=== PATIENT | female | born 1980 | race Two or more races ===

== ENCOUNTER 2025-01-30 16:43 | Emergency (ER) | payer MEDICAID, SELFPAY ==
[2025-01-30 16:53] VITALS: BP 111/74; PULSE 101; RESP 18; TEMP 37.2; O2SAT 98
--- NOTE | 2025-01-30 17:07 | PD.EDEAR ---
ED Ear RME/HPI General Chief complaint: Ear Stated complaint: BUG IN L) EAR Time Seen by Provider: 01/30/25 16:53 Source: patient Arrival date/time: 01/30/25 16:43 44-year-old female with no known medical history presents to the emergency room with a chief complaint of feeling like there is a bug in her left ear x 2 hours Mode of arrival: ambulatory Limitations: no limitations Related Data Previous Rx's ?Medication ?Instructions ?Recorded ofloxacin 0.3 % ear drops 5 drp otic (ear) QDAY 7 days #5 mL 01/30/25 Allergies Allergy/AdvReac Type Severity Reaction Status Date / Time No Known Allergies Allergy Verified 01/30/25 16:45 Review of Systems Review of Systems Systems Reviewed: All systems reviewed, normal except as documented Constitutional Constitutional: Reports system reviewed and no additional complaints, except as documented, Denies fatigue, Denies fever(s), Denies headache(s) and Denies weakness Eyes Eyes: Reports system reviewed and no additional complaints, except as documented, Denies blurry vision and Denies change in vision ENT Ears, Nose, Mouth, and Throat: Reports system reviewed and no additional complaints, except as documented, Denies otalgia, Denies headache(s), Denies nasal congestion, Denies throat swelling and Denies vertigo Cardiovascular Cardiovascular: Reports system reviewed and no additional complaints, except as documented, Denies chest pain, Denies dyspnea and Denies dyspnea on exertion Respiratory Respiratory: Reports system reviewed and no additional complaints, except as documented, Denies chest congestion, Denies cough, Denies dyspnea, Denies dyspnea on exertion and Denies wheezing Gastrointestinal Gastrointestinal: Reports system reviewed and no additional complaints, except as documented, Denies abdominal pain, Denies cramping, Denies nausea and Denies vomiting Genitourinary Genitourinary: Reports system reviewed and no additional complaints, except as documented Musculoskeletal Musculoskeletal: Reports system reviewed and no additional complaints, except as documented and Denies back pain Integumentary/Breasts Skin/Breast: Reports system reviewed and no additional complaints, except as documented and Denies wounds Neurologic Neurologic: Reports system reviewed and no additional complaints, except as documented, Denies confusion, Denies headache(s), Denies lack of coordination, Denies vertigo and Denies weakness Psychiatric Psychiatric: Reports system reviewed and no additional complaints, except as documented, Denies anxiety, Denies confusion, Denies depression, Denies paranoia, Denies suicidal ideation and Denies tactile hallucinations Endocrine Endocrine: Reports system reviewed and no additional complaints, except as documented and Denies fatigue Hematologic/Lymphatic Hematologic/Lymphatic: Reports system reviewed and no additional complaints, except as documented and Denies lymphadenopathy Allergic/Immunologic Allergic/Immunologic: Reports system reviewed and no additional complaints, except as documented, Denies throat swelling, Denies urticaria and Denies wheezing ED Exam General Limitations: Present no limitations General appearance: Present alert and in no apparent distress Head Head exam: Present atraumatic Eye Eye exam: Present normal appearance, PERRL and EOMI ENT ENT exam: Present normal exam, normal oropharynx and mucous membranes moist Neck Neck exam: Present normal inspection, full ROM and trachea midline Chest Chest inspection: Present normal inspection and symmetric chest wall rise Respiratory Respiratory exam: Present normal lung sounds bilaterally Cardiovascular Cardiovascular exam: Present regular rate, normal rhythm and normal heart sounds Abdominal Exam Abdominal exam: Present soft and normal bowel sounds Extremities Exam Extremities exam: Present normal inspection and full ROM Back Exam Back exam: Present normal inspection and full ROM Neurological Exam Neurological exam: Present alert, oriented X3 and CN II-XII intact Psychiatric Psychiatric exam: Present normal affect and normal mood Skin Skin exam: Present warm, dry, intact and normal color Course Quality Measures none Orders Category Date Time Status ED Ear Irrigation X1 Care 01/30/25 17:06 Active Vital Signs Vital signs: Vital Signs Temperature 99.0 F 01/30/25 16:53 Pulse Rate 101 H 01/30/25 16:53 Respiratory Rate 18 01/30/25 16:53 Blood Pressure 111/74 01/30/25 16:53 Pulse Oximetry (%) 98 01/30/25 16:53 Oxygen Delivery Method Room Air 01/30/25 16:53 O2 saturation 98% within normal limits Ear MDM Narrative MDM Narrative:: 44-year-old female with no known medical history presents to the emergency room with a chief complaint of feeling like there is a bug in her left ear x 2 hours Patient is hemodynamically stable and in no apparent distress. ENT examination was completed and I was unable to visualize any foreign body or insect in her left ear. An ear irrigation was completed and the patient states she had relief. I reevaluated the ear and there is still no insects or foreign body that I was able to visualize. Tympanic membrane is clear and nonbulging nonerythemic. The patient does have some external ear canal tenderness. Patient was sent home with otitis externa antibiotics Patient was discharged and educated to follow-up with primary care provider in the next 24 to 48 hours and return to the emergency room for any evidence of worsening signs or symptoms Patient data External records reviewed:: [facility] previous records Clinical information provided by:: patient Social determinants that could affect healthcare access:: none Patient has the following chronic illnesses:: No chronic illness How is presenting disease/condition affected by chronic disease/condition?: no chronic disease Evaluation data The following diagnostics were reviewed and interpreted by me:: lab results and radiology exam(s) Lab and/or radiology exams considered but not ordered:: Labs and radiology exams considered in order Interpretation Summary: N/A Medications / Prescriptions Medications or Prescriptions considered but not ordered:: No medication given Medication administrations:: No medication given Consultations Consultation(s) initiated? (list below): No Diagnosis Ear Differential Diagnosis: otitis externa, otitis media and foreign body in ear Most likely diagnosis given after review of the tests above:: Otitis externa Admission Indicated Admission indicated?: not indicated Admission Request Was there a request for admission?: No Disposition Plan Disposition Plan: Discharge Discharge Attestation Discharge Attestation: The patient and all family members were given an opportunity to ask questions and understood the discharge instructions. Discharge instructions specifically effects, indications for sooner follow up or return to the emergency department, and the expected course of current diagnosis. Patient condition: Stable Discharge Plan Plan Patient Disposition: HOME (Self Care) Discharge Disposition comment: Stable Prescriptions/Referrals Prescriptions/Med Rec: New ofloxacin 0.3 % drops 5 drp otic (ear) QDAY 7 Days Qty: 5 0RF Referrals: No Primary/Family,Physician [Primary Care Provider] - In 1 week Problem List Clinical Impression: Otitis externa Patient/Caregiver Discharge Instructions Education Materials: Anatomy of the Ear, ED External Ear Infection (Adult) Additional Instructions: Please follow-up with your primary care provider in the next 24 to 48 hours. Medication was sent to pharmacy please pick it up and take it as indicated For any evidence of worsening signs or symptoms return to the emergency room immediately Print Language: Tamazight Stand Alone Forms: [employer] Award Info., Patient Portal Info Letter PA/[employer]ICIAN Supervising Physician LORRAINE/WILBUR Supervising Physician: Dr. Maddox
== END 2025-01-30 17:41 | disposition home or self-care (01) ==
PROVIDERS: Emergency Provider Family Medicine
DX: H60.92 Unspecified otitis externa, left ear (principal)
CPT/HCPCS: 99283

== ENCOUNTER 2025-03-28 16:04 | Emergency (ER) | payer MEDICAID, SELFPAY ==
[2025-03-28 16:04] VITALS: BMI 23.5
[2025-03-28 17:02] VITALS: BP 116/65; PULSE 93; RESP 18; TEMP 36.8; O2SAT 97
--- NOTE | 2025-03-28 17:07 | EDNOTE_ITS ---
ED SOB =RME/HPI General Chief Complaint: Shortness of Breath/Dyspnea Stated Complaint: DIFF BREATHING TODAY, RIGHT SIDE PAIN Time Seen by Provider: 03/28/25 17:06 Arrival date/time: 03/28/25 16:04 Limitations: no limitations RME / HPI RME / HPI Narrative: 44 year old female presents to the ED for evaluation of shortness of breath beginning today. Described feeling she is not able to get a good breath in. Accompanied by a nonproductive cough. Additionally reports feeling something kicking me in her abdomen. States she had her menses last month and does not believe she is . No other associated symptoms reported. Denies fevers, chills, chest pain, abdominal pain, n/v/d, or urinary symptoms. Denies using her inhaler at home. Related Data Previous Rx's ?Medication ?Instructions ?Recorded albuterol sulfate 90 mcg/actuation 2 inh inhalation Q6 H PRN shortness 03/28/25 aerosol inhaler of breath or wheezing #8.5 g nadia prednisone 20 mg tablet See Taper PO QDAY allergic 0 03/28/25 reaction #18 tabs Allergies Allergy/AdvReac Type Severity Reaction Status Date / Time No Known Allergies Allergy Verified 03/28/25 16:06 Review of Systems Review of Systems Systems Reviewed: All systems reviewed, normal except as documented Past Medical History Past Medical History RESPIRATORY: Positive Asthma Social History SMOKING STATUS: Current every day smoker ED Exam General Limitations: Present no limitations General appearance: Present alert and in no apparent distress Head Head exam: Present atraumatic, normocephalic and normal inspection Eye Eye exam: Present normal appearance, PERRL and EOMI ENT ENT exam: Present normal exam, normal oropharynx and mucous membranes moist Neck Neck exam: Present normal inspection, full ROM and trachea midline Chest Chest inspection: Present normal inspection and symmetric chest wall rise Respiratory Respiratory exam: Present other (Mild wheezing mild lung burgos bilaterally, increased respiratory rate, no rales, no crackles ) Cardiovascular Cardiovascular exam: Present regular rate, normal rhythm and normal heart sounds Abdominal Exam Abdominal exam: Present soft and normal bowel sounds Extremities Exam Extremities exam: Present normal inspection and full ROM Back Exam Back exam: Present normal inspection and full ROM Neurological Exam Neurological exam: Present alert, oriented X3 and CN II-XII intact Psychiatric Psychiatric exam: Present normal affect and normal mood Skin Skin exam: Present warm, dry, intact and normal color Course Quality Measures none Orders Category Date Time Status HCG Qualitative,Urine Stat Lab 03/28/25 17:13 Ordered ALBUTEROL RT 3ml [Proventil Rt 3ml] Med 03/28/25 17:11 Discontinued 2.5 mg INH X1 ONE predniSONE Med 03/28/25 17:11 Discontinued 60 mg PO X1 ONE Vital Signs Vital signs: Vital Signs Temperature 98.3 F 03/28/25 17:02 Pulse Rate 93 03/28/25 17:02 Respiratory Rate 18 03/28/25 17:02 Blood Pressure 116/65 03/28/25 17:02 Pulse Oximetry (%) 97 03/28/25 17:02 Oxygen Delivery Method Room Air 03/28/25 17:02 Pulse ox is 97% on room air which is adequate. Shortness of Breath / Dyspnea MDM Narrative MDM Narrative:: Carolina Youssef am scribing for and in the presence of Dr. Maddox. Patient data External records reviewed:: [facility] previous records (I reviewed ED visit on 01/30/2025) Clinical information provided by:: patient Social determinants that could affect healthcare access:: none Patient has the following chronic illnesses:: Asthma How is presenting disease/condition affected by chronic disease/condition?: exacerbated by Evaluation data The following diagnostics were reviewed and interpreted by me:: other (specify) (No diagnostics ordered ) Lab and/or radiology exams considered but not ordered:: None Interpretation Summary: No diagnostics to interpret Medications / Prescriptions Medications or Prescriptions considered but not ordered:: None Medication administrations:: Medication Administration History Discontinued Medications Albuterol (Albuterol Rt 2.5 Mg/3 Ml Nebu) 2.5 mg INH X1 ONE Stop: 03/28/25 17:12 Last Admin: 03/28/25 17:50 Dose: 2.5 mg Documented By: Prednisone (Prednisone 20 Mg Tablet) 60 mg PO X1 ONE Stop: 03/28/25 17:12 Last Admin: 03/28/25 17:45 Dose: 60 mg Documented By: See above Consultations Consultation(s) initiated? (list below): No Diagnosis Shortness of Breath Differential Diagnosis: acute exacerbation of chronic obstructive airways disease, congestive heart failure, community acquired pneumonia and asthma with exacerbation Most likely diagnosis given after review of the tests above:: Asthma exacerbation Admission Indicated Admission indicated?: not indicated Admission Request Was there a request for admission?: No Disposition Plan Disposition Plan: Discharge Discharge Attestation Discharge Attestation: The patient and all family members were given an opportunity to ask questions and understood the discharge instructions. Discharge instructions specifically effects, indications for sooner follow up or return to the emergency department, and the expected course of current diagnosis. Patient condition: Stable Discharge Plan Plan Patient Disposition: HOME (Self Care) Prescriptions/Referrals Prescriptions/Med Rec: New albuterol sulfate 90 mcg/actuation HFA aerosol inhaler 2 inh inhalation Q6H MDD 8 puffs PRN (Reason: shortness of breath or wheezing) Qty: 8.5 0RF prednisone 20 mg tablet See Taper PO QDAY MDD 3 Qty: 18 0RF Taper: Prednisone Taper 20 mg DAILY for 2 Days and 0 Hour Rx Instructions: Take 3 Tabs q Day for 3 days then take 2 tabs q Day for 3 days then take 1 tablet q Day for 3 days then D/C Problem List Clinical Impression: Asthma with exacerbation Patient/Caregiver Discharge Instructions Education Materials: ED Asthma, Acute (Adult) Additional Instructions: Follow-up with your primary care doctor in 3 to 5 days for recheck. You can return to the emergency department sooner if symptoms worsen or if you notice any new, concerning issues. Print Language: Croatian Stand Alone Forms: [employer] Award Info., Patient Portal Info Letter
[2025-03-28 17:50] VITALS: PULSE 75
[2025-03-28] MEDS: ALBUTEROL RT 2.5 MG/3 ML NEBU INH (17:50)
[2025-03-28 17:51] VITALS: PULSE 71; RESP 19; O2SAT 99
[2025-03-28 18:01] LABS: HCG Qualitative,Urine Negative
== END 2025-03-28 18:18 | disposition home or self-care (01) ==
LOC: SERX 18:36
PROVIDERS: Family Medicine; Emergency Provider Emergency Medicine
DX: J45.901 Unspecified asthma with (acute) exacerbation (principal); F17.210 Nicotine dependence, cigarettes, uncomplicated
CPT/HCPCS: 81025; 94640; 99283; J7512